=== PATIENT | female | born 1970 | race Caucasian/White ===

== ENCOUNTER 2017-10-30 22:21 | Emergency (ER) | payer SELFPAY, MEDICAID ==
[2017-10-31 02:10] LABS: URINE BLOOD (Dip) POC 2+ (NEGATIVE); URINE GLUCOSE (Dip) POC Negative (NEGATIVE); URINE KETONES (Dip) POC Negative (NEGATIVE); URINE LEUKOCYTE EST (Dip) POC 3+ (NEGATIVE); URINE NITRITE (Dip) POC Negative (NEGATIVE); URINE TOTAL PROTEIN POC Trace (NEGATIVE)
== END 2017-10-31 02:20 | disposition home or self-care (01) ==
LOC: FTE 10-31 02:20
DX: N39.0 Urinary tract infection, site not specified (principal)
CPT/HCPCS: 81003; 99283